=== PATIENT | female | born 1960 | race African-American/Black ===

== ENCOUNTER 2020-09-22 09:54 | Day surgery (SDC) | payer BC ==
[2020-09-22] MEDS ORDERED: LIDOCAINE 2% MPF 5 ML VIAL ONE (10:27)
[2020-09-22] MEDS ORDERED: propofoL 200 MG/20 ML VIAL IV ONE ×2 (10:27→10:41)
[2020-09-22] MEDS ORDERED: FENTANYL CITR 100 MCG/2 ML ONE ×2 (10:27→10:41)
[2020-09-22] MEDS ORDERED: MIDAZOLAM HCL 2 MG/2 ML INJ ONE ×2 (10:27→10:41)
[2020-09-22] MEDS ORDERED: Ringers Lactate 1,000 ML IV ONE (10:28)
[2020-09-22] MEDS ORDERED: ONDANSETRON 4 MG/2 ML VIAL ONE ×2 (10:32→11:14)
[2020-09-22] MEDS ORDERED: LIDOCAINE 1% MPF 5 ML VIAL ONE (10:41)
[2020-09-22] MEDS ORDERED: ACETAMINOPHEN 500 MG TAB ONE (10:43)
[2020-09-22] MEDS ORDERED: CELECOXIB 100 MG CAPSULE ONE (10:44)
[2020-09-22] MEDS ORDERED: LIDOCAINE 1% W/EPI 1:100,000 MDV 20 ML VIAL ONE (11:03)
[2020-09-22] MEDS ORDERED: dexAMETHasone 10 MG/ML VIAL ONE (11:07)
[2020-09-22] MEDS ORDERED: KETOROLAC 30 MG/ML INJ ONE (11:08)
[2020-09-22 11:39] VITALS: TEMP 97.1
[2020-09-22 12:53] VITALS: BP 125/72; O2SAT 97
--- NOTE | 2020-09-23 00:01 | OP ---
Date of Procedure: 09/22/2020 Surgeon: Melvina Price MD Preoperative Diagnoses: Secondary amenorrhea, thickened endometrium, history of polyps. Postoperative Diagnoses: Secondary amenorrhea and thickened endometrium, no discrete poly ps. Procedures Performed: Hysteroscopy and dilatation and curettage with MyoSure LITE. The polypoid end ometrium was also removed. This is the reason why the MyoSure device was used. Anesthesia: General with LMA. Specimens: Endometrial curettings with polyps. Complications: No complications. Drains: No drains. Condition: Stable. Indications: The patient is a 59-year-old with prior history of endometrial polyp, benign, recurrent history of thickened endometrium polypoid. So she was brought into the hospital to evaluate and ___ endometrium adequately. She is also overweight and has risk factors for endometrial atypia or malignancy type 1, so she was c onsented accordingly for this procedure understanding that the secondary amenorrhea could also be a r estefanía for endometrial thickening. Description Of Procedure: After informed consent was verified, she was taken back to OR, placed in a supine fashion on the operating table. General anesthesia was given. She was placed in dorsal lith otomy position. Pelvic exam was performed. Uterus was found to be anteflexed. Vulva, vagina, and p erineum were prepped in a sterile fashion. Speculum was placed to expose the cervix. Anterior lip w as grasped with 2 Allis clamps. Diagnostic SlimLine hysteroscope was introduced through the cervical canal and traversed under direct vision into the uterine cavity. The cavity appeared to be unremark able without any mass excepting for the thickened endometrium that had polypoid structures in it. Emir th tubal ostia were well visualized. The upper part of the cervical canal was stenotic, but was dire ctly entered with the aid of the scope. Once the scope was removed, we dilated with cervical dilator s to 16-Lith[place]ian. The scope was changed to the MyoSure scope normal saline used for distention medium. Hyst eroscopy was started with the MyoSure LITE device inserted through the operative channel. After entering the uterine cavity, the cavity was dilated. The uterine pressure was set at 80 mmHg. Curettings were performed and attention paid to the areas of the polypoid structures on t he endometrium. Adequate sampling was performed and all the santamaria of the uterus including the fundus . After this was complete, the device was removed. The scope was removed. There was minimal bleedi ng. Instruments were removed. Instrument, needle, and sponge counts were done and were correct at t he end of the case. EBL was minimal. She was recovered from anesthesia in the OR and taken to the P [facility] in a stable condition. Her son was notified of her well being. She will have operative findings and pathology report reviewed at her 1-week postop. TEQUILA/ARLYN Voice ID: [id number] Report ID: [id number]
== END 2020-09-22 12:44 | disposition home or self-care (01) ==
LOC: OR 09:54
PROVIDERS: ATTEND Obstetrics & Gynecology
PROC: 0UDB7ZX Extraction of Endometrium, Via Natural or Artificial Opening, Diagnostic (ICD-10-PCS; 2020-09-22)
PROC: 0UJD8ZZ Inspection of Uterus and Cervix, Via Natural or Artificial Opening Endoscopic (ICD-10-PCS; 2020-09-22)
PROC: 0UB97ZX Excision of Uterus, Via Natural or Artificial Opening, Diagnostic (ICD-10-PCS; principal; 2020-09-22 11:30)
DX: N91.1 Secondary amenorrhea (principal); N84.0 Polyp of corpus uteri; R93.89 Abnormal findings on diagnostic imaging of other specified body structures; Z20.822 Contact with and (suspected) exposure to COVID-19
CPT/HCPCS: 81025; 88305; 58558; U0002; J2704; J2250; J3010; J1100; J7120; J2405